=== PATIENT | male | born 1965 | race Two or more races ===

== ENCOUNTER 2021-10-29 21:51 | Inpatient (IN) | payer MEDICAID, OTHER ==
[~2021-10-29] VITALS: Ht 188 cm; Wt 103.7 kg
[2021-10-30] MEDS ORDERED: PIPERACILLIN-TAZOB 3.375GM 100 ML IV ONE (02:45)
[2021-10-30] MEDS ORDERED: VANCOMYCIN 1GM/250ML 250 ML IV ONE (02:45)
[2021-10-30 03:53] LABS: Basophils # (auto) 0 10 ^3/uL (0-0.2); Basophils % (auto) 0.8 % (0.0-2.0); Eosinophils # (auto) 0.4 10 ^3/uL (0-0.8); Eosinophils % (auto) 6.9 % (0.0-7.0); Hematocrit 34.2 % (41.0-53.0); Hemoglobin 11.7 g/dL (13.5-17.5); Lymphocytes # (auto) 0.9 10 ^3/uL (0.4-5.4); Lymphocytes % (auto) 13.3 % (10.0-50.0); Mean Corpuscular Hemoglobin 27.3 pg (28.0-32.0); Mean Corpuscular Hgb Conc. 34.3 g/dL (32.0-36.0); Mean Corpuscular Volume 79.6 fL (80.0-100.0); Monocytes # (auto) 0.6 10 ^3/uL (0-1.3); Monocytes % (auto) 9.6 % (0.0-12.0); Neutrophils # (auto) 4.4 10 ^3/uL (1.6-8.6); Neutrophils % (auto) 69.4 % (37.0-80.0); Nucleated Red Blood Cells % 0.1 %; Red Cell Distribution Width 14.4 % (11.8-14.3); White Blood Cell 6.4 10^3/uL (4.4-10.8)
[2021-10-30 04:04] LABS: Albumin 3.3 g/dL (3.4-5.0); Calcium 8.4 mg/dL (8.5-10.1); Potassium 4.2 mmol/L (3.5-5.1)
[2021-10-30 04:08] LABS: BUN/Creatinine Ratio 17.8; Bilirubin, Total 1.3 mg/dL (0.2-1.0); Total Protein 6.5 g/dL (6.4-8.2)
[2021-10-30] MEDS ORDERED: MORPHINE SULFATE 4 MG/ML SYR/VIAL IV ONE (04:15)
[2021-10-30] MEDS ORDERED: ACETAMINOPHEN 325 MG TAB PO PRN (05:30)
[2021-10-30] MEDS ORDERED: ONDANSETRON HCL 4 MG/2 ML VIAL IV PRN (05:30)
[2021-10-30] MEDS ORDERED: TEMAZEPAM 15 MG CAP PO PRN (05:30)
[2021-10-30] MEDS ORDERED: DEXTROSE (50%) 50ML SYRG IV PRN (05:30)
[2021-10-30] MEDS: CLINDAMYCIN 600MG IV 50 ML IV SCH ×3 (06:00→21:57)
[2021-10-30] MEDS ORDERED: GEMF-19 PO (07:57)
[2021-10-30] MEDS ORDERED: METF-370 PO (07:57)
[2021-10-30] MEDS ORDERED: QUET200T4 PO (07:59)
[2021-10-30] MEDS ORDERED: INSU1INJ19 SC (08:05)
[2021-10-30] MEDS ORDERED: AMPH20TA2 PO (08:07)
[2021-10-30] MEDS: ACCU-CHEK COMFORT CURVE STRIP VI SCH ×4 (08:33→22:09)
[2021-10-30] MEDS: InsuLIN REG 1unit/0.01ml Soln (100units/ml) SC SCH ×4 (08:33→22:19)
[2021-10-30] MEDS: HYDROcodone-ACET 5/325MG TAB PO PRN ×3 (08:43→21:58)
[2021-10-30] MEDS: cefTRIAXone 1GM/50ML D5W 50 ML IV SCH (09:07)
[2021-10-30 09:48] LABS: Urine Bacteria NONE SEEN /hpf (None Seen); Urine Blood 1+ /uL (Negative); Urine Specific Gravity 1.011 (1.001-1.035); Urine WBC <1 /hpf (0 - 3)
[2021-10-30] MEDS ORDERED: FUROSEMIDE 40 MG/4 ML VIAL IV ONE (11:45)
[2021-10-30] MEDS ORDERED: METOPROLOL TARTRATE 25 MG TAB PO ONE (14:00)
[2021-10-30 15:57] LABS: Alcohol, Urine < 3.0 mg/dL (0-10); Amphetamine Screen, Urine NEGATIVE (NEGATIVE); Barbiturate Scree,Urine NEGATIVE (NEGATIVE); Benzodiazephine Screen, Urine NEGATIVE (NEGATIVE); Cannabinoid Screen, Urine NEGATIVE (NEGATIVE); Cocaine Screen, Urine NEGATIVE (NEGATIVE); Opiate Scree,Urine POSITIVE (NEGATIVE)
[2021-10-30 16:02] LABS: Phencyclidine Screen, Urine NEGATIVE (NEGATIVE)
[2021-10-30] MEDS: FUROSEMIDE 40 MG/4 ML VIAL IV SCH (18:50)
[2021-10-30] MEDS: POTASSIUM CHL 10 Meq TABLET PO SCH (21:57)
[2021-10-30] MEDS: METOPROLOL TARTRATE 25 MG TAB PO SCH (21:58)
[2021-10-30] MEDS: QUEtiapine FUMARATE 100 MG TAB PO SCH (21:58)
[2021-10-30] MEDS: GEMFIBROZIL 600 MG TAB PO SCH (21:58)
[2021-10-30] MEDS: ADDERALL PO SCH (22:00)
[2021-10-31] MEDS: HYDROcodone-ACET 5/325MG TAB PO PRN ×3 (02:28→22:11)
[2021-10-31] MEDS ORDERED: MORPHINE SULFATE INJECTION 2 MG/ML SYRG IV PRN (03:00)
[2021-10-31 03:07] LABS: Albumin 2.7 g/dL (3.4-5.0); BUN/Creatinine Ratio 15.5; Calcium 8.4 mg/dL (8.5-10.1); Potassium 3.8 mmol/L (3.5-5.1)
[2021-10-31 03:10] LABS: Bilirubin, Total 1.3 mg/dL (0.2-1.0); Total Protein 5.6 g/dL (6.4-8.2)
[2021-10-31] MEDS: CLINDAMYCIN 600MG IV 50 ML IV SCH ×3 (06:00→22:08)
[2021-10-31] MEDS: FUROSEMIDE 40 MG/4 ML VIAL IV SCH ×2 (06:00→17:23)
[2021-10-31] MEDS: ACCU-CHEK COMFORT CURVE STRIP VI SCH ×4 (06:40→21:39)
[2021-10-31] MEDS: InsuLIN REG 1unit/0.01ml Soln (100units/ml) SC SCH ×4 (06:46→21:39)
[2021-10-31 07:51] LABS: Basophils # (auto) 0 10 ^3/uL (0-0.2); Basophils % (auto) 0.9 % (0.0-2.0); Eosinophils # (auto) 0.5 10 ^3/uL (0-0.8); Eosinophils % (auto) 13.3 % (0.0-7.0); Hematocrit 32.2 % (41.0-53.0); Hemoglobin 11.1 g/dL (13.5-17.5); Lymphocytes # (auto) 0.7 10 ^3/uL (0.4-5.4); Lymphocytes % (auto) 18.2 % (10.0-50.0); Mean Corpuscular Hemoglobin 27.5 pg (28.0-32.0); Mean Corpuscular Hgb Conc. 34.4 g/dL (32.0-36.0); Mean Corpuscular Volume 79.9 fL (80.0-100.0); Monocytes # (auto) 0.5 10 ^3/uL (0-1.3); Monocytes % (auto) 11.6 % (0.0-12.0); Neutrophils # (auto) 2.3 10 ^3/uL (1.6-8.6); Nucleated Red Blood Cells % 1.1 %; Red Blood Cells 4.03 10^6/uL (4.5-5.90); Red Cell Distribution Width 14.3 % (11.8-14.3)
[2021-10-31 08:15] LABS: Cholesterol 164 mg/dL (< 200); HDL Cholesterol 35 mg/dL (40-59); LDL Cholesterol 109 mg/dL (< 100); Triglycerides 108 mg/dL (< 150)
[2021-10-31] MEDS: ADDERALL PO SCH ×2 (08:20→22:00)
[2021-10-31] MEDS: cefTRIAXone 1GM/50ML D5W 50 ML IV SCH (09:15)
[2021-10-31] MEDS: METOPROLOL TARTRATE 25 MG TAB PO SCH ×2 (11:06→22:08)
[2021-10-31] MEDS: POTASSIUM CHL 10 Meq TABLET PO SCH ×2 (11:06→22:09)
[2021-10-31] MEDS: ENOXAPARIN SOD 40 MG/0.4 ML SYRINGE SC SCH (11:14)
[2021-10-31] MEDS ORDERED: NITROGLYCERIN 0.4 MG SL TAB SL PRN (13:30)
[2021-10-31 13:53] VITALS: BP 148/100
[2021-10-31] MEDS: SODIUM CHLOR 0.9% PF (SALINE LOCK) 10ML VIAL/SYR IV SCH ×2 (14:29→22:09)
[2021-10-31] MEDS: MORPHINE SULFATE INJECTION 2 MG/ML SYRG IV PRN ×2 (15:11→20:12)
[2021-10-31 17:00] VITALS: BP 137/90
[2021-10-31] MEDS: DOBUTamine 1000MCG/ML 250 ML IV SCH (17:17)
[2021-10-31 22:00] VITALS: BP 168/93
[2021-10-31] MEDS: QUEtiapine FUMARATE 100 MG TAB PO SCH (22:08)
[2021-10-31] MEDS: SACUBITRIL-VALSARTAN 24mg/26mg TAB PO SCH (22:08)
[2021-10-31] MEDS: GEMFIBROZIL 600 MG TAB PO SCH (22:08)
[2021-11-01] MEDS: MORPHINE SULFATE INJECTION 2 MG/ML SYRG IV PRN ×6 (00:37→22:41)
[2021-11-01 05:00] VITALS: BP 142/86
[2021-11-01] MEDS: DOBUTamine 1000MCG/ML 250 ML IV SCH ×2 (05:57→18:57)
[2021-11-01] MEDS: CLINDAMYCIN 600MG IV 50 ML IV SCH ×2 (06:00→13:29)
[2021-11-01] MEDS: SODIUM CHLOR 0.9% PF (SALINE LOCK) 10ML VIAL/SYR IV SCH ×3 (06:01→21:50)
[2021-11-01] MEDS: FUROSEMIDE 40 MG/4 ML VIAL IV SCH ×2 (06:01→17:32)
[2021-11-01] MEDS: InsuLIN REG 1unit/0.01ml Soln (100units/ml) SC SCH ×4 (06:01→22:10)
[2021-11-01] MEDS: ACCU-CHEK COMFORT CURVE STRIP VI SCH ×4 (06:02→21:53)
[2021-11-01 06:53] LABS: INR 1.18 (0.9-1.15); Partial Thromboplastin Time 31.1 sec (23.6-33.0)
[2021-11-01 07:04] LABS: Potassium 4.1 mmol/L (3.5-5.1)
[2021-11-01 07:10] LABS: BUN/Creatinine Ratio 17.9; Calcium 8.9 mg/dL (8.5-10.1)
[2021-11-01 09:02] VITALS: BP 126/82
[2021-11-01] MEDS: SACUBITRIL-VALSARTAN 24mg/26mg TAB PO SCH ×2 (09:07→21:51)
[2021-11-01] MEDS: ENOXAPARIN SOD 40 MG/0.4 ML SYRINGE SC SCH (09:07)
[2021-11-01] MEDS: cefTRIAXone 1GM/50ML D5W 50 ML IV SCH (09:07)
[2021-11-01] MEDS: DAPAGLIFLOZIN 5 MG TAB PO SCH (09:08)
[2021-11-01] MEDS: POTASSIUM CHL 10 Meq TABLET PO SCH ×2 (09:08→21:51)
[2021-11-01] MEDS: METOPROLOL TARTRATE 25 MG TAB PO SCH ×2 (09:08→21:53)
[2021-11-01] MEDS: ADDERALL PO SCH ×2 (09:09→21:50)
[2021-11-01] MEDS: HYDROcodone-ACET 5/325MG TAB PO PRN ×2 (11:57→20:29)
[2021-11-01 13:00] VITALS: BP 137/81
[2021-11-01 17:00] VITALS: BP 155/84
[2021-11-01] MEDS: GEMFIBROZIL 600 MG TAB PO SCH (21:52)
[2021-11-01] MEDS: QUEtiapine FUMARATE 100 MG TAB PO SCH (21:53)
[2021-11-01 22:19] VITALS: BP 140/82
[2021-11-02] MEDS: MORPHINE SULFATE INJECTION 2 MG/ML SYRG IV PRN ×4 (04:19→22:38)
[2021-11-02 05:17] VITALS: BP 156/79
[2021-11-02] MEDS: SODIUM CHLOR 0.9% PF (SALINE LOCK) 10ML VIAL/SYR IV SCH ×3 (06:00→22:00)
[2021-11-02] MEDS: ACCU-CHEK COMFORT CURVE STRIP VI SCH ×4 (06:36→22:00)
[2021-11-02] MEDS: InsuLIN REG 1unit/0.01ml Soln (100units/ml) SC SCH ×4 (06:42→22:35)
[2021-11-02] MEDS: FUROSEMIDE 40 MG/4 ML VIAL IV SCH ×2 (06:47→18:00)
[2021-11-02 08:30] LABS: Potassium 4.1 mmol/L (3.5-5.1)
[2021-11-02 08:37] LABS: BUN/Creatinine Ratio 16.9; Calcium 9.4 mg/dL (8.5-10.1)
[2021-11-02] MEDS: DOBUTamine 1000MCG/ML 250 ML IV SCH (08:39)
[2021-11-02 09:00] VITALS: BP 113/69
[2021-11-02] MEDS: POTASSIUM CHL 10 Meq TABLET PO SCH ×2 (10:00→22:38)
[2021-11-02] MEDS: ADDERALL PO SCH ×2 (10:00→22:00)
[2021-11-02] MEDS: DAPAGLIFLOZIN 5 MG TAB PO SCH (10:00)
[2021-11-02] MEDS: METOPROLOL TARTRATE 25 MG TAB PO SCH ×2 (10:00→22:39)
[2021-11-02] MEDS: ENOXAPARIN SOD 40 MG/0.4 ML SYRINGE SC SCH (10:00)
[2021-11-02] MEDS: SACUBITRIL-VALSARTAN 24mg/26mg TAB PO SCH ×2 (10:00→22:37)
[2021-11-02 13:02] VITALS: BP 109/73
[2021-11-02 16:59] VITALS: BP 144/77
[2021-11-02] MEDS ORDERED: LACTULOSE 20Gm/30ML SOLN PO PRN (17:45)
[2021-11-02] MEDS: HYDROcodone-ACET 5/325MG TAB PO PRN (20:24)
[2021-11-02 21:45] VITALS: BP 157/84
[2021-11-02] MEDS: DOCUSATE SOD 100 MG CAP PO SCH (22:37)
[2021-11-02] MEDS: GEMFIBROZIL 600 MG TAB PO SCH (22:38)
[2021-11-02] MEDS: QUEtiapine FUMARATE 100 MG TAB PO SCH (22:39)
[2021-11-03 04:54] VITALS: BP 116/67
[2021-11-03] MEDS: DOBUTamine 1000MCG/ML 250 ML IV SCH (05:47)
[2021-11-03] MEDS: SODIUM CHLOR 0.9% PF (SALINE LOCK) 10ML VIAL/SYR IV SCH ×3 (05:48→21:13)
[2021-11-03] MEDS: FUROSEMIDE 40 MG/4 ML VIAL IV SCH ×2 (05:49→18:00)
[2021-11-03] MEDS: ACCU-CHEK COMFORT CURVE STRIP VI SCH ×4 (05:49→21:13)
[2021-11-03] MEDS: MORPHINE SULFATE INJECTION 2 MG/ML SYRG IV PRN ×5 (05:51→21:12)
[2021-11-03] MEDS: InsuLIN REG 1unit/0.01ml Soln (100units/ml) SC SCH ×4 (06:33→21:14)
[2021-11-03 08:17] VITALS: BP 116/69
[2021-11-03] MEDS: ADDERALL PO SCH ×2 (10:00→21:13)
[2021-11-03] MEDS: ENOXAPARIN SOD 40 MG/0.4 ML SYRINGE SC SCH ×2 (10:00→10:12)
[2021-11-03] MEDS: DOCUSATE SOD 100 MG CAP PO SCH ×2 (10:09→21:13)
[2021-11-03] MEDS: DAPAGLIFLOZIN 5 MG TAB PO SCH (10:10)
[2021-11-03] MEDS: METOPROLOL TARTRATE 25 MG TAB PO SCH ×2 (10:12→21:12)
[2021-11-03] MEDS: SACUBITRIL-VALSARTAN 24mg/26mg TAB PO SCH ×2 (10:12→21:13)
[2021-11-03] MEDS: POTASSIUM CHL 10 Meq TABLET PO SCH ×2 (10:13→21:13)
[2021-11-03 12:17] VITALS: BP 108/71
[2021-11-03 17:18] VITALS: BP 97/60
[2021-11-03] MEDS: HYDROcodone-ACET 5/325MG TAB PO PRN (20:28)
[2021-11-03] MEDS ORDERED: MORPHINE SULFATE INJECTION 2 MG/ML SYRG ONE (21:10)
[2021-11-03] MEDS: QUEtiapine FUMARATE 100 MG TAB PO SCH (21:12)
[2021-11-03] MEDS: GEMFIBROZIL 600 MG TAB PO SCH (21:13)
[2021-11-03 22:00] VITALS: BP 134/84
[2021-11-04] VITALS (10 sets, daily range): BP systolic 91–131; BP diastolic 53–93
[2021-11-04] MEDS: MORPHINE SULFATE INJECTION 2 MG/ML SYRG IV PRN ×4 (01:14→21:49)
[2021-11-04] MEDS: FUROSEMIDE 40 MG/4 ML VIAL IV SCH (05:30)
[2021-11-04] MEDS: SODIUM CHLOR 0.9% PF (SALINE LOCK) 10ML VIAL/SYR IV SCH ×3 (05:30→21:49)
[2021-11-04] MEDS: InsuLIN REG 1unit/0.01ml Soln (100units/ml) SC SCH ×4 (06:29→21:52)
[2021-11-04] MEDS: ACCU-CHEK COMFORT CURVE STRIP VI SCH ×4 (06:29→21:50)
[2021-11-04 07:15] LABS: Calcium 9.4 mg/dL (8.5-10.1); Potassium 3.8 mmol/L (3.5-5.1)
[2021-11-04 07:17] LABS: BUN/Creatinine Ratio 18.8
[2021-11-04 07:26] LABS: Basophils # (auto) 0.1 10 ^3/uL (0-0.2); Basophils % (auto) 1.2 % (0.0-2.0); Eosinophils # (auto) 0.9 10 ^3/uL (0-0.8); Eosinophils % (auto) 14.3 % (0.0-7.0); Hematocrit 36.9 % (41.0-53.0); Hemoglobin 12.8 g/dL (13.5-17.5); Lymphocytes # (auto) 1.7 10 ^3/uL (0.4-5.4); Lymphocytes % (auto) 25.9 % (10.0-50.0); Mean Corpuscular Hemoglobin 26.9 pg (28.0-32.0); Mean Corpuscular Hgb Conc. 34.7 g/dL (32.0-36.0); Mean Corpuscular Volume 77.5 fL (80.0-100.0); Monocytes # (auto) 0.7 10 ^3/uL (0-1.3); Monocytes % (auto) 11.4 % (0.0-12.0); Neutrophils % (auto) 47.2 % (37.0-80.0); Nucleated Red Blood Cells % 0.2 %; Red Blood Cells 4.75 10^6/uL (4.5-5.90); Red Cell Distribution Width 14.9 % (11.8-14.3); White Blood Cell 6.4 10^3/uL (4.4-10.8)
[2021-11-04 07:27] LABS: INR 1.1 (0.9-1.15); Partial Thromboplastin Time 29.4 sec (23.6-33.0)
[2021-11-04] MEDS ORDERED: LIDOCAINE 2%HCL (LOCAL ANESTH.) INJ 20ML MDV ONE (08:14)
[2021-11-04] MEDS ORDERED: HEPARIN SODIUM (PORCINE) 5000 UNITS/ML 1ML VIAL ONE (08:15)
[2021-11-04] MEDS ORDERED: VERAPAMIL 2.5MG/ML INJ 2ML VIAL IV ONE (08:15)
[2021-11-04] MEDS ORDERED: MIDAZOLAM HCL 2MG/2ML 2ml VIAL (1mg/ml) ONE (08:16)
[2021-11-04] MEDS ORDERED: SODIUM CHL 0.9% 100 ML ONE (08:16)
[2021-11-04] MEDS ORDERED: fentaNYL CITRATE 100 MCG/2 ML VL ONE (08:16)
[2021-11-04] MEDS ORDERED: NITROGLYCERIN 5MG/ML 10ML VIAL IV ONE (08:17)
[2021-11-04] MEDS ORDERED: ANGIOMAX 250 MG VIAL IV ONE ×2 (08:18→10:37)
[2021-11-04] MEDS: ENOXAPARIN SOD 40 MG/0.4 ML SYRINGE SC SCH (10:00)
[2021-11-04] MEDS: DOCUSATE SOD 100 MG CAP PO SCH ×2 (10:00→21:49)
[2021-11-04] MEDS: SACUBITRIL-VALSARTAN 24mg/26mg TAB PO SCH ×2 (10:00→21:49)
[2021-11-04] MEDS: DAPAGLIFLOZIN 5 MG TAB PO SCH (10:00)
[2021-11-04] MEDS: POTASSIUM CHL 10 Meq TABLET PO SCH ×2 (10:00→21:49)
[2021-11-04] MEDS: METOPROLOL TARTRATE 25 MG TAB PO SCH ×2 (10:00→21:50)
[2021-11-04] MEDS ORDERED: ATROPINE SULF 1 MG/10ml SYR ONE (10:09)
[2021-11-04] MEDS ORDERED: EPINEPHrine HCL 1 MG/10 ML SYRG ONE (10:10)
[2021-11-04] MEDS ORDERED: IODIXANOL 320MG/ML 100ML BTL IV ONE ×3 (10:13→11:10)
[2021-11-04] MEDS ORDERED: SODIUM CHL 0.9% 50 ML ONE (10:37)
[2021-11-04] MEDS ORDERED: ASPirin 325 MG TAB ONE (11:15)
[2021-11-04] MEDS ORDERED: TICAGRELOR 90 MG TAB ONE (11:15)
[2021-11-04] MEDS: TICAGRELOR 90 MG TAB PO SCH (21:49)
[2021-11-04] MEDS: GEMFIBROZIL 600 MG TAB PO SCH (21:49)
[2021-11-04] MEDS: QUEtiapine FUMARATE 100 MG TAB PO SCH (21:50)
[2021-11-05 03:50] VITALS: BP 124/70
[2021-11-05] MEDS: MORPHINE SULFATE INJECTION 2 MG/ML SYRG IV PRN ×5 (03:52→22:50)
[2021-11-05] MEDS: InsuLIN REG 1unit/0.01ml Soln (100units/ml) SC SCH ×4 (06:23→22:46)
[2021-11-05] MEDS: ACCU-CHEK COMFORT CURVE STRIP VI SCH ×4 (06:23→21:33)
[2021-11-05] MEDS: SODIUM CHLOR 0.9% PF (SALINE LOCK) 10ML VIAL/SYR IV SCH ×3 (06:23→21:32)
[2021-11-05 08:24] LABS: BUN/Creatinine Ratio 19.4; Calcium 9.4 mg/dL (8.5-10.1); Potassium 3.6 mmol/L (3.5-5.1)
[2021-11-05] MEDS: ASPirin 81 mg TAB PO SCH (08:43)
[2021-11-05] MEDS: DOCUSATE SOD 100 MG CAP PO SCH ×2 (08:43→21:32)
[2021-11-05] MEDS: SACUBITRIL-VALSARTAN 24mg/26mg TAB PO SCH (08:43)
[2021-11-05] MEDS: TICAGRELOR 90 MG TAB PO SCH ×2 (08:43→21:32)
[2021-11-05] MEDS: METOPROLOL TARTRATE 25 MG TAB PO SCH ×3 (08:44→21:33)
[2021-11-05] MEDS: DAPAGLIFLOZIN 5 MG TAB PO SCH (08:44)
[2021-11-05] MEDS: POTASSIUM CHL 10 Meq TABLET PO SCH (08:44)
[2021-11-05] MEDS: ENOXAPARIN SOD 40 MG/0.4 ML SYRINGE SC SCH (08:46)
[2021-11-05 09:00] VITALS: BP 106/88
[2021-11-05] MEDS: D5W/SOD CHL 0.45% 1,000 ML IV SCH ×2 (09:56→19:30)
[2021-11-05 13:00] VITALS: BP 109/66
[2021-11-05 17:00] VITALS: BP 116/71
[2021-11-05 20:41] VITALS: BP 115/70
[2021-11-05] MEDS: ATORVASTATIN 20 MG TAB PO SCH (21:32)
[2021-11-05] MEDS: QUEtiapine FUMARATE 100 MG TAB PO SCH (21:33)
[2021-11-05] MEDS ORDERED: ATORVASTATIN 20 MG TAB PO SCH (22:00)
[2021-11-06] MEDS: MORPHINE SULFATE INJECTION 2 MG/ML SYRG IV PRN ×5 (02:41→22:06)
[2021-11-06 02:49] LABS: Calcium 8.8 mg/dL (8.5-10.1); Potassium 3.9 mmol/L (3.5-5.1)
[2021-11-06 02:55] LABS: BUN/Creatinine Ratio 18.4
[2021-11-06 05:15] VITALS: BP 120/69
[2021-11-06] MEDS: D5W/SOD CHL 0.45% 1,000 ML IV SCH ×3 (05:21→18:46)
[2021-11-06] MEDS: SODIUM CHLOR 0.9% PF (SALINE LOCK) 10ML VIAL/SYR IV SCH ×3 (05:21→21:47)
[2021-11-06] MEDS: InsuLIN REG 1unit/0.01ml Soln (100units/ml) SC SCH ×4 (06:20→21:48)
[2021-11-06] MEDS: ACCU-CHEK COMFORT CURVE STRIP VI SCH ×4 (06:20→21:47)
[2021-11-06 07:30] VITALS: BP 115/70
[2021-11-06] MEDS: DAPAGLIFLOZIN 5 MG TAB PO SCH (08:11)
[2021-11-06] MEDS: ENOXAPARIN SOD 40 MG/0.4 ML SYRINGE SC SCH (08:11)
[2021-11-06] MEDS: ASPirin 81 mg TAB PO SCH (08:12)
[2021-11-06] MEDS: DOCUSATE SOD 100 MG CAP PO SCH ×2 (08:12→21:47)
[2021-11-06] MEDS: METOPROLOL TARTRATE 25 MG TAB PO SCH ×2 (08:12→21:47)
[2021-11-06] MEDS: TICAGRELOR 90 MG TAB PO SCH ×2 (08:13→21:47)
[2021-11-06 09:00] VITALS: BP 101/58
[2021-11-06 13:00] VITALS: BP 117/67
[2021-11-06 16:46] VITALS: BP 95/56
[2021-11-06] MEDS: ATORVASTATIN 20 MG TAB PO SCH (21:47)
[2021-11-06] MEDS: QUEtiapine FUMARATE 100 MG TAB PO SCH (21:47)
[2021-11-06 22:00] VITALS: BP 145/83
[2021-11-07] MEDS: MORPHINE SULFATE INJECTION 2 MG/ML SYRG IV PRN ×4 (02:06→16:05)
[2021-11-07 05:00] VITALS: BP 127/81
[2021-11-07] MEDS: SODIUM CHLOR 0.9% PF (SALINE LOCK) 10ML VIAL/SYR IV SCH ×2 (06:00→14:00)
[2021-11-07] MEDS: InsuLIN REG 1unit/0.01ml Soln (100units/ml) SC SCH ×3 (06:38→17:00)
[2021-11-07] MEDS: ACCU-CHEK COMFORT CURVE STRIP VI SCH ×3 (07:00→17:00)
[2021-11-07 08:00] VITALS: BP 145/83
[2021-11-07 08:17] LABS: Basophils # (auto) 0.1 10 ^3/uL (0-0.2); Basophils % (auto) 0.9 % (0.0-2.0); Eosinophils # (auto) 0.8 10 ^3/uL (0-0.8); Hematocrit 34.2 % (41.0-53.0); Hemoglobin 12.1 g/dL (13.5-17.5); Lymphocytes % (auto) 18.8 % (10.0-50.0); Mean Corpuscular Hemoglobin 27.7 pg (28.0-32.0); Mean Corpuscular Hgb Conc. 35.3 g/dL (32.0-36.0); Mean Corpuscular Volume 78.5 fL (80.0-100.0); Monocytes # (auto) 0.8 10 ^3/uL (0-1.3); Monocytes % (auto) 13.9 % (0.0-12.0); Neutrophils # (auto) 2.8 10 ^3/uL (1.6-8.6); Neutrophils % (auto) 51.1 % (37.0-80.0); Nucleated Red Blood Cells % 0.6 %; Red Blood Cells 4.36 10^6/uL (4.5-5.90); Red Cell Distribution Width 14.7 % (11.8-14.3); White Blood Cell 5.5 10^3/uL (4.4-10.8)
[2021-11-07 08:20] LABS: Potassium 3.7 mmol/L (3.5-5.1)
[2021-11-07 08:32] LABS: Eosinophils % (auto) 15.3 % (0.0-7.0)
[2021-11-07 08:34] LABS: BUN/Creatinine Ratio 21.4; Calcium 8.7 mg/dL (8.5-10.1)
[2021-11-07] MEDS ORDERED: ATOR40TA52 PO (08:58)
[2021-11-07] MEDS ORDERED: ASPI1TAB20 PO (08:58)
[2021-11-07] MEDS ORDERED: DAPA1TAB4 PO (08:58)
[2021-11-07] MEDS ORDERED: TICA90TA PO (08:58)
[2021-11-07] MEDS ORDERED: MET25T PO (08:58)
[2021-11-07] MEDS ORDERED: NITR0.4S29 SL (08:58)
[2021-11-07 09:00] VITALS: BP 116/74
[2021-11-07] MEDS: DAPAGLIFLOZIN 5 MG TAB PO SCH (11:05)
[2021-11-07] MEDS: TICAGRELOR 90 MG TAB PO SCH (11:05)
[2021-11-07] MEDS: DOCUSATE SOD 100 MG CAP PO SCH (11:05)
[2021-11-07] MEDS: ASPirin 81 mg TAB PO SCH (11:05)
[2021-11-07] MEDS: ENOXAPARIN SOD 40 MG/0.4 ML SYRINGE SC SCH (11:06)
[2021-11-07] MEDS: METOPROLOL TARTRATE 25 MG TAB PO SCH (11:06)
[2021-11-07 13:59] VITALS: BP 139/86
[2021-11-07 17:00] VITALS: BP 137/78
[2021-11-07] MEDS ORDERED: TICAGRELOR 90 MG TAB PO ONE (18:00)
== END 2021-11-07 18:30 | disposition home or self-care (01) | DRG 246 ==
LOC: ER 21:53 → OVERFLOW 10-30 05:31 → CENTRAL 10-31 11:58 → TELE-CENTR 10-31 13:44
PROVIDERS: ADMIT Nurse Practitioner; ATTEND Internal Medicine
PROC: 027136Z Dilation of Coronary Artery, Two Arteries with Three Drug-eluting Intraluminal Devices, Percutaneous Approach (ICD-10-PCS; principal; 2021-11-04)
PROC: 02703ZZ Dilation of Coronary Artery, One Artery, Percutaneous Approach (ICD-10-PCS; 2021-11-04)
PROC: 4A023N7 Measurement of Cardiac Sampling and Pressure, Left Heart, Percutaneous Approach (ICD-10-PCS; 2021-11-04)
PROC: B2111ZZ Fluoroscopy of Multiple Coronary Arteries using Low Osmolar Contrast (ICD-10-PCS; 2021-11-04)
PROC: B2151ZZ Fluoroscopy of Left Heart using Low Osmolar Contrast (ICD-10-PCS; 2021-11-04)
PROC: B240ZZ3 Ultrasonography of Single Coronary Artery, Intravascular (ICD-10-PCS; 2021-11-04)
DX: I25.10 Atherosclerotic heart disease of native coronary artery without angina pectoris (principal); I50.43 Acute on chronic combined systolic (congestive) and diastolic (congestive) heart failure; E44.0 Moderate protein-calorie malnutrition; N17.9 Acute kidney failure, unspecified; N43.3 Hydrocele, unspecified; E11.9 Type 2 diabetes mellitus without complications; F90.9 Attention-deficit hyperactivity disorder, unspecified type; E78.5 Hyperlipidemia, unspecified; I11.0 Hypertensive heart disease with heart failure; I25.5 Ischemic cardiomyopathy; Z20.822 Contact with and (suspected) exposure to COVID-19; E78.00 Pure hypercholesterolemia, unspecified; Z79.4 Long term (current) use of insulin; Z79.899 Other long term (current) drug therapy; Z87.891 Personal history of nicotine dependence; Z68.34 Body mass index [BMI] 34.0-34.9, adult; Z71.3 Dietary counseling and surveillance
CPT/HCPCS: 36415; 71045; 76870; 80048; 80053; 80061; 80307; 81001; 82728; 82962; 83036; 83880; 84443; 84484; 85025; 85610; 85730; 86141; 87040; 87426; 93005; 93306; 96365; 96367; 96375; 99152; 99153; C1874; G0378; J0696; J1815; J2250; J2405; J2543; J3490; Q9967

== ENCOUNTER 2021-11-09 15:47 | Inpatient (IN) | payer MEDICAID, OTHER ==
[~2021-11-09] VITALS: Ht 188 cm; Wt 101.9 kg
[2021-11-09 02:45] VITALS: BP 123/72
[~2021-11-09 15:47] MED LIST: ASPI1TAB20 PO; ATOR40TA52 PO; DAPA1TAB4 PO; INSU1INJ19 SC; MET25T PO; METF-370 PO; NITR0.4S29 SL; QUET200T4 PO; TICA90TA PO
[2021-11-09 17:16] LABS: Basophils # (auto) 0.1 10 ^3/uL (0-0.2); Eosinophils # (auto) 0.9 10 ^3/uL (0-0.8); Eosinophils % (auto) 8.2 % (0.0-7.0); Hematocrit 37.2 % (41.0-53.0); Hemoglobin 12.9 g/dL (13.5-17.5); Lymphocytes # (auto) 0.9 10 ^3/uL (0.4-5.4); Lymphocytes % (auto) 8.7 % (10.0-50.0); Mean Corpuscular Hemoglobin 27.4 pg (28.0-32.0); Mean Corpuscular Hgb Conc. 34.7 g/dL (32.0-36.0); Monocytes # (auto) 0.8 10 ^3/uL (0-1.3); Monocytes % (auto) 7.4 % (0.0-12.0); Neutrophils # (auto) 7.8 10 ^3/uL (1.6-8.6); Neutrophils % (auto) 74.7 % (37.0-80.0); Nucleated Red Blood Cells % 0.1 %; Red Blood Cells 4.71 10^6/uL (4.5-5.90); Red Cell Distribution Width 14.9 % (11.8-14.3); White Blood Cell 10.5 10^3/uL (4.4-10.8)
[2021-11-09 17:34] LABS: Albumin 3.5 g/dL (3.4-5.0); Calcium 9.1 mg/dL (8.5-10.1); Potassium 4.4 mmol/L (3.5-5.1)
[2021-11-09 17:40] LABS: Total Protein 7.4 g/dL (6.4-8.2)
[2021-11-09 19:10] LABS: Urine Bacteria NONE SEEN /hpf (None Seen); Urine Blood Negative /uL (Negative); Urine Specific Gravity 1.023 (1.001-1.035); Urine WBC <1 /hpf (0 - 3)
[2021-11-09] MEDS ORDERED: HYDROcodone-ACET 5/325MG TAB PO PRN (19:30)
[2021-11-09] MEDS ORDERED: HEPARIN SODIUM (PORCINE) 5000 UNITS/ML 1ML VIAL IV ONE (19:30)
[2021-11-09] MEDS ORDERED: NITROGLYCERIN 0.4 MG SL TAB SL PRN (19:30)
[2021-11-09] MEDS ORDERED: HYDROmorphone HCL 2 MG/ML VL IV PRN (19:30)
[2021-11-09] MEDS ORDERED: SODIUM CHLORIDE 0.9% 1,000 ML IV SCH (19:30)
[2021-11-09] MEDS ORDERED: ACETAMINOPHEN 325 MG TAB PO PRN (19:30)
[2021-11-09] MEDS ORDERED: DOCUSATE SOD 100 MG CAP PO PRN (19:30)
[2021-11-09] MEDS ORDERED: ALUM & MAG HYDROX-SIMETH LIQ(MAALOX) 30 ML PO PRN (19:30)
[2021-11-09] MEDS ORDERED: MORPHINE SULFATE INJECTION 2 MG/ML SYRG IV PRN ×2 (19:30)
[2021-11-09] MEDS ORDERED: ONDANSETRON HCL 4 MG/2 ML VIAL IV PRN (19:30)
[2021-11-09] MEDS ORDERED: DEXTROSE (50%) 50ML SYRG IV PRN (20:15)
[2021-11-09] MEDS ORDERED: FUROSEMIDE 20 MG/2 ML VIAL IV ONE (22:15)
[2021-11-09] MEDS: HEPARIN DRIP/D5W 100UNITS/ML 250 ML IV SCH (22:28)
[2021-11-09 23:32] LABS: INR 1.16 (0.9-1.15)
[2021-11-09 23:34] LABS: Partial Thromboplastin Time > 139.0 sec (23.6-33.0)
[2021-11-10] MEDS: ACCU-CHEK COMFORT CURVE STRIP VI SCH ×5 (00:51→23:42)
[2021-11-10 01:37] LABS: INR 1.1 (0.9-1.15); Partial Thromboplastin Time 40.5 sec (23.6-33.0)
[2021-11-10] MEDS: HEPARIN DRIP/D5W 100UNITS/ML 250 ML IV SCH (03:02)
[2021-11-10] MEDS: InsuLIN REG 1unit/0.01ml Soln (100units/ml) SC SCH ×5 (06:50→23:46)
[2021-11-10 07:20] VITALS: BP 115/67
[2021-11-10 08:00] VITALS: BP 115/67
[2021-11-10 09:00] VITALS: BP 115/67
[2021-11-10 10:18] LABS: Basophils # (auto) 0.1 10 ^3/uL (0-0.2); Hematocrit 36.6 % (41.0-53.0); Monocytes # (auto) 0.5 10 ^3/uL (0-1.3); Neutrophils # (auto) 3.2 10 ^3/uL (1.6-8.6); Red Cell Distribution Width 15.3 % (11.8-14.3)
[2021-11-10 10:20] LABS: Basophils % (auto) 1.1 % (0.0-2.0); Eosinophils % (auto) 16.2 % (0.0-7.0); Hemoglobin 12.6 g/dL (13.5-17.5); Lymphocytes # (auto) 1.1 10 ^3/uL (0.4-5.4); Lymphocytes % (auto) 19.4 % (10.0-50.0); Mean Corpuscular Hemoglobin 26.9 pg (28.0-32.0); Mean Corpuscular Hgb Conc. 34.4 g/dL (32.0-36.0); Mean Corpuscular Volume 78.2 fL (80.0-100.0); Monocytes % (auto) 9.1 % (0.0-12.0); Neutrophils % (auto) 54.2 % (37.0-80.0); Nucleated Red Blood Cells % 0.3 %; Red Blood Cells 4.68 10^6/uL (4.5-5.90); White Blood Cell 5.9 10^3/uL (4.4-10.8)
[2021-11-10 10:25] LABS: Albumin 3.3 g/dL (3.4-5.0); Calcium 9.3 mg/dL (8.5-10.1); INR 1.09 (0.9-1.15); Partial Thromboplastin Time 33.3 sec (23.6-33.0); Potassium 3.7 mmol/L (3.5-5.1)
[2021-11-10 10:29] LABS: BUN/Creatinine Ratio 19.8; Bilirubin, Total 1.6 mg/dL (0.2-1.0); Total Protein 6.8 g/dL (6.4-8.2)
[2021-11-10] MEDS ORDERED: HEPARIN SODIUM (PORCINE) 5000 UNITS/ML 1ML VIAL IV ONE (11:00)
[2021-11-10] MEDS ORDERED: ASPirin 81 mg TAB PO ONE (11:45)
[2021-11-10] MEDS ORDERED: TICAGRELOR 90 MG TAB PO ONE (11:45)
[2021-11-10] MEDS ORDERED: ATORVASTATIN 20 MG TAB PO ONE (11:45)
[2021-11-10 18:32] LABS: INR 1.06 (0.9-1.15); Partial Thromboplastin Time 52.9 sec (23.6-33.0)
[2021-11-10 20:00] VITALS: BP 147/86
[2021-11-10 22:00] VITALS: BP 147/86
[2021-11-10] MEDS: TICAGRELOR 90 MG TAB PO SCH (23:41)
[2021-11-10] MEDS: METOPROLOL TARTRATE 25 MG TAB PO SCH (23:42)
[2021-11-10] MEDS: ATORVASTATIN 20 MG TAB PO SCH (23:42)
[2021-11-11] VITALS (7 sets, daily range): BP systolic 122–152; BP diastolic 73–94
[2021-11-11 00:22] LABS: INR 1.06 (0.9-1.15); Partial Thromboplastin Time 43.8 sec (23.6-33.0)
[2021-11-11] MEDS: LORazepam 0.5 MG TAB PO PRN ×2 (01:23→21:52)
[2021-11-11] MEDS: InsuLIN REG 1unit/0.01ml Soln (100units/ml) SC SCH ×3 (06:00→18:04)
[2021-11-11] MEDS: ACCU-CHEK COMFORT CURVE STRIP VI SCH ×3 (06:01→17:56)
[2021-11-11 07:07] LABS: Albumin 2.9 g/dL (3.4-5.0); Calcium 8.8 mg/dL (8.5-10.1); Potassium 3.6 mmol/L (3.5-5.1)
[2021-11-11 07:08] LABS: Basophils # (auto) 0.1 10 ^3/uL (0-0.2); Hematocrit 34.8 % (41.0-53.0); Lymphocytes # (auto) 1.5 10 ^3/uL (0.4-5.4); Monocytes # (auto) 0.7 10 ^3/uL (0-1.3); Nucleated Red Blood Cells % 0.3 %; White Blood Cell 6.7 10^3/uL (4.4-10.8)
[2021-11-11 07:09] LABS: BUN/Creatinine Ratio 19.8
[2021-11-11 07:10] LABS: Basophils % (auto) 1.1 % (0.0-2.0); Mean Corpuscular Hemoglobin 26.9 pg (28.0-32.0); Mean Corpuscular Hgb Conc. 34.4 g/dL (32.0-36.0); Mean Corpuscular Volume 78.1 fL (80.0-100.0); Monocytes % (auto) 11.1 % (0.0-12.0); Red Blood Cells 4.45 10^6/uL (4.5-5.90); Red Cell Distribution Width 15.4 % (11.8-14.3)
[2021-11-11 07:11] LABS: Bilirubin, Total 1.5 mg/dL (0.2-1.0); Total Protein 6.1 g/dL (6.4-8.2)
[2021-11-11 07:12] LABS: Eosinophils % (auto) 14.9 % (0.0-7.0); Neutrophils # (auto) 3.6 10 ^3/uL (1.6-8.6); Neutrophils % (auto) 50.9 % (37.0-80.0)
[2021-11-11 09:04] LABS: INR 1.09 (0.9-1.15); Partial Thromboplastin Time 32.7 sec (23.6-33.0)
[2021-11-11] MEDS ORDERED: ADENOSINE 86 MG in GIVE UN-DILUTED 0 ML IV STA (11:25)
[2021-11-11] MEDS: HEPARIN DRIP/D5W 100UNITS/ML 250 ML IV SCH (14:16)
[2021-11-11] MEDS: DAPAGLIFLOZIN 5 MG TAB PO SCH (15:47)
[2021-11-11] MEDS: ASPirin 81 mg TAB PO SCH (15:47)
[2021-11-11] MEDS: TICAGRELOR 90 MG TAB PO SCH ×2 (15:48→21:52)
[2021-11-11] MEDS: METOPROLOL TARTRATE 25 MG TAB PO SCH ×2 (15:48→21:53)
[2021-11-11] MEDS ORDERED: AMPH1TAB78 PO (21:06)
[2021-11-11] MEDS ORDERED: METF-490 PO (21:06)
[2021-11-11] MEDS: ATORVASTATIN 20 MG TAB PO SCH (21:52)
[2021-11-12] MEDS: ACCU-CHEK COMFORT CURVE STRIP VI SCH ×2 (01:52→05:14)
[2021-11-12 05:00] VITALS: BP 132/75
[2021-11-12] MEDS: InsuLIN REG 1unit/0.01ml Soln (100units/ml) SC SCH ×2 (05:14)
[2021-11-12 08:10] VITALS: BP 128/79
[2021-11-12 08:15] VITALS: BP 128/79
[2021-11-12] MEDS: ASPirin 81 mg TAB PO SCH (09:36)
[2021-11-12] MEDS: DAPAGLIFLOZIN 5 MG TAB PO SCH (09:36)
[2021-11-12] MEDS: METOPROLOL TARTRATE 25 MG TAB PO SCH (09:37)
[2021-11-12] MEDS: TICAGRELOR 90 MG TAB PO SCH (09:59)
[2021-11-12 10:50] VITALS: BP 128/79
== END 2021-11-12 12:00 | disposition home or self-care (01) | DRG 291 ==
LOC: ER 15:47 → TELE 19:18 → TELE-WESTW 11-10 01:55
PROVIDERS: ADMIT Family Medicine; ATTEND Internal Medicine
DX: I11.0 Hypertensive heart disease with heart failure (principal); I50.43 Acute on chronic combined systolic (congestive) and diastolic (congestive) heart failure; I25.10 Atherosclerotic heart disease of native coronary artery without angina pectoris; E11.65 Type 2 diabetes mellitus with hyperglycemia; E66.3 Overweight; E11.21 Type 2 diabetes mellitus with diabetic nephropathy; I25.5 Ischemic cardiomyopathy; R79.89 Other specified abnormal findings of blood chemistry; F90.9 Attention-deficit hyperactivity disorder, unspecified type; Z53.9 Procedure and treatment not carried out, unspecified reason; R07.9 Chest pain, unspecified; E78.5 Hyperlipidemia, unspecified; Z20.822 Contact with and (suspected) exposure to COVID-19; Z95.5 Presence of coronary angioplasty implant and graft; Z79.4 Long term (current) use of insulin; Z79.82 Long term (current) use of aspirin; Z68.27 Body mass index [BMI] 27.0-27.9, adult; Z91.19 Patient's noncompliance with other medical treatment and regimen
CPT/HCPCS: 36415; 71045; 78452; 80053; 81001; 82962; 83880; 84443; 84484; 85025; 85610; 85730; 87081; 87426; 93005; 93017; 96365; 96375; G0378; J0153; J1815